=== PATIENT | female | born 1950 | race Two or more races ===

== ENCOUNTER 2017-04-03 09:57 | Inpatient (IN) | payer MEDICARE, BC ==
[~2017-04-03] VITALS: Ht 170.2 cm; Wt 62.1 kg
--- NOTE | 2017-04-03 10:00 | NUR ---
PT TO ED ROOM 07. BIB RA 75 FROM HOME,C/O DIZZINESS AND PALPITATION,SVT AT 185 BUT CONVERTED IN FIELD. A/A/O. SIDE RAISL UP. HOB ELEVATED. CHANGED TO GOWN. CONNECTED TO MONITORS. SEEN BY ED PROVIDER.
[2017-04-03] MEDS ORDERED: DILTIAZEM HCL 25 MG IV ONE (10:13)
--- NOTE | 2017-04-03 10:20 | NUR ---
ASSISTANT ANALYST AT BEDSIDE FOR BLOOD DRAW
--- NOTE | 2017-04-03 10:22 | NUR ---
CARD CALLED [phone] WILL BE PAGED
[2017-04-03] MEDS ORDERED: DILTIAZEM HCL 50 MG IV IV ONE ×2 (10:30→11:30)
[2017-04-03 10:34] LABS: CALCIUM, SERUM 10.1 mg/dL (8.5-10.1); CREATININE 0.7 mg/dL (0.6-1.3); POTASSIUM 4.6 mmol/L (3.5-5.1)
[2017-04-03 10:35] LABS: BASOPHILS # (AUTO) 0.2 /CMM (0.0-0.2); BASOPHILS % (AUTO) 3.3 % (0.0-2.0); EOSINOPHILS # (AUTO) 0.2 /CMM (0.0-0.7); EOSINOPHILS % (AUTO) 3.3 % (0.0-6.0); HEMATOCRIT 51 % (33-45); HEMOGLOBIN 16.8 g/dL (11.5-14.8); LYMPHOCYTES # (AUTO) 2.6 /CMM (0.8-4.8); LYMPHOCYTES % (AUTO) 34.8 % (20.0-44.0); MEAN CORPUSCULAR HEMOGLOBIN 31 PG (26.0-33.0); MEAN CORPUSCULAR HGB CONC 33 g/dl (31.0-36.0); MEAN CORPUSCULAR VOLUME 95 fL (82-100); MONOCYTES # (AUTO) 0.6 /CMM (0.1-1.30); MONOCYTES % (AUTO) 7.5 % (2.0-12.0); NEUTROPHILS # (AUTO) 3.7 /CMM (1.8-8.9); NEUTROPHILS % (AUTO) 51.1 % (43.0-81.0); RDW COEFFICIENT OF VARIATION 11.9 (11.5-15.0); WHITE BLOOD COUNT (AUTO) 7.3 K/uL (4.3-11.0)
[2017-04-03 10:38] LABS: INR 1.05 (0.87-1.13); PROTHROMBIN TIME 10.9 SECS (9.5-12.7)
[2017-04-03 10:40] LABS: ALBUMIN 4.2 g/dL (3.4-5.0); BILIRUBIN,DIRECT 0.2 mg/dL (0.0-0.2); BILIRUBIN,TOTAL 0.9 mg/dL (0.2-1.0); TOTAL PROTEIN, SERUM 8.7 g/dL (6.4-8.2)
[2017-04-03 10:42] LABS: TROPONIN I 0.018 ng/mL (0.00-0.056)
--- NOTE | 2017-04-03 10:53 | NUR ---
CALLED MICHAEL DIEHL NP.
--- NOTE | 2017-04-03 10:56 | NUR ---
CALLED [facility] SECOND TIME [phone] ITS FISHMAN
[2017-04-03] MEDS ORDERED: PROP10TA10 PO (10:58)
[2017-04-03] MEDS ORDERED: ESTR1PAT23 TD (10:58)
[2017-04-03 11:04] LABS: PLATELET COUNT (AUTO) 154 /CMM (150-450)
[2017-04-03 11:10] LABS: LYMPHOCYTES % (MANUAL) 35 % (16-48); MONOCYTES % (MANUAL) 9 % (0-11.0); NEUTROPHILS % (MANUAL) 51 (42-76); REACTIVE LYMPHOCYTES 5 % (0-0)
[2017-04-03] MEDS ORDERED: Z GUARD REMEDY 2 OZ OINT TP PRN (11:30)
[2017-04-03] MEDS: ENOXAPARIN SODIUM 40 MG/0.4 ML DISP.SYRIN SQ SCH (11:30)
[2017-04-03] MEDS ORDERED: ONDANSETRON HCL/PF 4 MG/2 ML VIAL IVP PRN (11:30)
[2017-04-03] MEDS ORDERED: MAGNESIUM HYDROXIDE 30 ML UDC PO PRN (11:30)
[2017-04-03] MEDS ORDERED: HYDROCODONE/APAP 5/325MG 1 EACH TABLET PO PRN (11:30)
[2017-04-03] MEDS ORDERED: MAG HYDROX/AL HYDROX/SIMETH 30 ML UDC PO PRN (11:30)
[2017-04-03] MEDS ORDERED: ACETAMINOPHEN 325 MG TABLET PO PRN (11:30)
--- NOTE | 2017-04-03 12:23 | NUR ---
REPORT GIVEN TO PHILIP 314/1 TELE
--- NOTE | 2017-04-03 12:40 | NUR ---
RN OPENING NOTES RECEIVED PATIENT FROM ER IN STABLE CONDITION, FAMILY AT BEDSIDE. PATIENT ORIENTED TO ROOM AND CALL LIGHT. TRANSFER TO BED SAFELY. WILL APPLY TELE BOX AND WILL CONTINUE TO MONITOR ACCORDINGLY.
[2017-04-03 14:00] VITALS: BP 123/70
[2017-04-03 14:30] VITALS: BP 113/50
--- NOTE | 2017-04-03 15:12 | NUR ---
PT STATED THAT SHE WAS TOLD IN ER THAT SHE NEEDS TO BE NPO, FRANCK NAVARRO CALLED AND INFORMED, NEW ORDER RECEIVED TO KEEP PT NPO TILL PEGGER DOBBY LOOMS WILL SEE THE PT. PT INFORMED.
--- NOTE | 2017-04-03 15:19 | NUR ---
DR. PARIKH ELEVATED GUARD AT BEDSIDE, NEW ORDER FOR CARDIAC DIET RECEIVED.
--- NOTE | 2017-04-03 15:22 | NUR ---
TELE READING REVIEWED BY DR. PARIKH
[2017-04-03 16:00] VITALS: BP 107/74
[2017-04-03] MEDS ORDERED: DILTIAZEM HCL 30 MG TABLET PO PRN (16:00)
[2017-04-03] MEDS: DILTIAZEM HCL CD 120 MG PO SCH (16:00)
--- NOTE | 2017-04-03 18:00 | NUR ---
RN NOTES POSSIBLE DISCHARGE TOMORROW
--- NOTE | 2017-04-03 19:19 | NUR ---
RN CLOSING NOTES ALL NEEDS PROVIDED, ATTENDED AND ANTICIPATED. KEPT PATIENT CLEAN AND COMFORTABLE IN BED, CALL LIGHT WITHIN PATIENT REACH. PATIENT IN TELE MONITOR SR HEART RATE OF 63WITH PAC'S. WILL CONTINUE TO MONITOR ACCORDINGLY. ENDORSED TO NEXT SHIFT RN TO CONTINUE CARE.
[2017-04-03 20:00] VITALS: BP 124/73
--- NOTE | 2017-04-03 20:00 | NUR ---
PATIENT IN BED, ALERT AND ORIENTED X4, CALM, NO SOB, NO RESPIRATORY DISTRESS, DENIES ANY PAIN AT THIS TIME, DENIES ANY CHEST PAIN, ON TELE MONITORING WITH READING OF SR WITH PAC'S, RAC #18 GAUGE SALINE LOCK IS PATENT AND INTACT, AMBULATES INDEPENDENTLY TO THE TOILET, KEPT SAFE AND COMFORTABLE, CALL LIGHT WITHIN REACH.
--- NOTE | 2017-04-03 21:40 | NUR ---
PATIENT REFUSED DVT PUMP, PATIENT AMBULATES IN THE HALLWAY, AMBULATES TO THE TOILET. EXPLAINED TO PATIENT RISKS AND BENEFITS
[2017-04-04] VITALS: BP 121/71
[2017-04-04 04:00] VITALS: BP 118/59
[2017-04-04 04:38] VITALS: BP 118/59
[2017-04-04 06:46] LABS: BASOPHILS % (AUTO) 0.4 % (0.0-2.0); EOSINOPHILS # (AUTO) 0.1 /CMM (0.0-0.7); HEMATOCRIT 43 % (33-45); HEMOGLOBIN 14.8 g/dL (11.5-14.8); LYMPHOCYTES # (AUTO) 1.3 /CMM (0.8-4.8); MEAN CORPUSCULAR HEMOGLOBIN 32 PG (26.0-33.0); MEAN CORPUSCULAR HGB CONC 34 g/dl (31.0-36.0); MEAN CORPUSCULAR VOLUME 95 fL (82-100); MONOCYTES # (AUTO) 0.5 /CMM (0.1-1.30); MONOCYTES % (AUTO) 10.9 % (2.0-12.0); NEUTROPHILS # (AUTO) 2.6 /CMM (1.8-8.9); NEUTROPHILS % (AUTO) 56.7 % (43.0-81.0); PLATELET COUNT (AUTO) 138 /CMM (150-450); RDW COEFFICIENT OF VARIATION 12.7 (11.5-15.0); RED BLOOD CELL COUNT(AUTO) 4.59 MIL/uL (4.0-5.2); WHITE BLOOD COUNT (AUTO) 4.5 K/uL (4.3-11.0)
--- NOTE | 2017-04-04 06:53 | NUR ---
PATIENT IN BED, ALERT AND AWAKE, NO SOB, NO DISTRESS, NO COMPLAIN OF PAIN, NO CHEST PAIN. NO ADVERSE CHANGE OF CONDITION DURING SHIFT, NEEDS ATTENDED, CALL LIGHT WITHIN REACH.
[2017-04-04 07:08] LABS: THYROID STIMULATING HORMONE 0.999 uIU/mL (0.358-3.74)
[2017-04-04 07:14] LABS: CALCIUM, SERUM 8.8 mg/dL (8.5-10.1); CREATININE 0.7 mg/dL (0.6-1.3); MAGNESIUM 1.9 mg/dL (1.8-2.4); PHOSPHORUS 3.2 mg/dL (2.5-4.9); POTASSIUM 3.4 mmol/L (3.5-5.1)
--- NOTE | 2017-04-04 07:20 | NUR ---
PARTS CONTROL CLERK INITIAL NOTES REPORT RECEIVED AT THE BEDSIDE. PATIENT IS RESTING COMFORTABLY IN BED. NO SOB OR DISTRESS NOTED AT THIS TIME. PATIENT DENIES PAIN. HEART RATE IS SR WITH PAC AT 66. BED IN A LOW POSITION, CALL LIGHT WITHIN PATIENT REACH. WILL CONTINUE TO MONITOR.
[2017-04-04 08:00] VITALS: BP 140/83
[2017-04-04] MEDS ORDERED: PROPRANOLOL HCL 10 MG TABLET PO SCH (09:00)
[2017-04-04] MEDS ORDERED: ASPIRIN 81 MG TAB.CHEW PO SCH (09:00)
[2017-04-04] MEDS: ENOXAPARIN SODIUM 40 MG/0.4 ML DISP.SYRIN SQ SCH (09:00)
[2017-04-04 09:02] VITALS: BP 140/83
[2017-04-04] MEDS: DILTIAZEM HCL CD 120 MG PO SCH (09:02)
[2017-04-04] MEDS ORDERED: POTASSIUM CHLORIDE 20 MEQ TAB.PRT.SR PO SCH (11:30)
--- NOTE | 2017-04-04 12:46 | NUR ---
COMMISSARY WORKERDIVERSITY INTERN NOTE DISCHARGE INSTRUCTIONS GIVEN TO THE PATIENT AND ABLE TO UNDERSTAND. NO SOB OR DISTRESS NOTED AT THIS TIME. PATIENT DENIES PAIN. VITALS CHECKED AND RECORDED. NO PICTURES NEEDED PATIENT SKIN IS INTACT. IV DISCONNECTED AND PRESSURE APPLIED, NO BLEEDING NOTED AT THE SITE. MEDICATION PRESCRIPTION GIVEN TO PATIENT. PATIENT LEFT IN STABLE CONDITION, ACCOMPANIED BY . PATIENT DISCHARGED TO HOME, AMBULATORY.
== END 2017-04-04 12:05 | disposition home or self-care (01) | DRG 309 ==
LOC: ER 09:59 → TELE 12:12 → MED 04-04 11:53
PROVIDERS: ADMIT Contractor; ATTEND Contractor
DX: I47.1 Supraventricular tachycardia (principal); N39.0 Urinary tract infection, site not specified; Z88.8 Allergy status to other drugs, medicaments and biological substances; I10 Essential (primary) hypertension; Z98.890 Other specified postprocedural states
CPT/HCPCS: 36415; 71010-TC; 80048-TC; 80061-TC; 80076-TC; 83735-TC; 84100-TC; 84443-TC; 84484-TC; 85025-TC; 85730-TC; 87081-TC; 93307-TC; A4606; J1650; J3490; Z7610